=== PATIENT | female | born 1965 | race Caucasian/White ===

== ENCOUNTER → 2023-07-25 10:13 | Outpatient (CLI) | payer OTHER, SELFPAY ==
--- NOTE | 2023-07-25 | DI.RAD.S_ITS ---
Bone Density Report Name: JUAN NEWBY Age: 57 Sex: Female Ethnicity: White Date of : 1965 Indication: postmenopausal; screening for osteoporosis; Referring Provider: CHARISMA THOMPSON Study: Bone densitometry was performed. Exam Date: July 25, 2023 Accession number: [id number] Bone Density: Region BMD T-score Z-score Classification AP Spine(L1-L4) 0.816 -2.1 -0.7 Osteopenia Femoral Neck (Left) 0.597 -2.3 -1.0 Osteopenia Total Hip (Left) 0.730 -1.7 -0.8 Osteopenia Femoral Neck (Right) 0.546 -2.7 -1.5 Osteoporosis Total Hip (Right) 0.706 -1.9 -1.0 Osteopenia Total Hip Mean 0.718 -1.8 -0.9 Osteopenia World Health Organization criteria for BMD impression classify patients as: Normal (T-score at or above -1.0), Osteopenia (T-score between -1.0 and -2.5), or Osteoporosis (T-score at or below -2.5). 10-year Fracture Risk: FRAX not reported because: Some T-score for Spine Total or Hip Total or Femoral Neck at or below -2.5 Impression: The patient has osteoporosis, based on the Right Femoral Neck T-score. Discussion: INCREASED RISK OF FRACTURE. BONE DENSITY IS UNDESIRABLY LOW AT ONE OR MORE SKELETAL SITES, CONSISTENT WITH POSTMENOPAUSAL OSTEOPOROSIS. This patient's lowest T-score meets the World Health Organization's (WHO) criteria for osteoporosis at one or more sites (T-score -2.5 or below). In untreated patients, the risk of osteoporotic fracture increases approximately two-fold for each 1.0 SD decrease in T-score. Low bone density is not the only risk factor for fracture; also consider factors such as patient's age, frailty or poor health, risk of falling, risk of injury, previous osteoporotic fracture, family history of osteoporosis, cigarette smoking, low body weight, etc. Not everyone with low bone mineral density has osteoporosis; osteomalacia and other metabolic bone disorders should also be considered. Patients who have osteoporosis should be evaluated for specific diseases and conditions (secondary causes) that may cause or contribute to bone loss. The [place] [employer] (AACE) and National Osteoporosis Foundation (NOF) recommend pharmacologic intervention for all postmenopausal women whose T-score is in this range. The patient should follow a healthful lifestyle (good nutrition with adequate calcium and vitamin D, and appropriate weight-bearing exercise). Follow-Up: Consider a repeat BMD and Vertebral Fracture Assessment (VFA) exam in 2 years or sooner if medically necessary, to reassess this patient's status. Reported by: JAGDEEP AGUILERA M.D. on 07/25/2023 10:46:00 AM.
== END ==
LOC: RAD 10:15
PROVIDERS: PCP Family Medicine; Referring Provider Family Medicine; Visit Provider Family Medicine
DX: Z13.820 Encounter for screening for osteoporosis (principal); Z82.62 Family history of osteoporosis; M81.0 Age-related osteoporosis without current pathological fracture
CPT/HCPCS: 77080